=== PATIENT | female | born 1995 | race Hispanic/Latino ===

== ENCOUNTER 2022-11-03 01:34 | Inpatient (IN) | payer OTHER ==
[~2022-11-03] VITALS: Ht 147.3 cm; Wt 46.3 kg
[2022-11-03] MEDS ORDERED: CEFAZOLIN SODIUM 1 GM VIAL IVPB PRN (02:00)
[2022-11-03] MEDS ORDERED: CALDOLOR 800MG+NS 250ML 250 ML IV PRN (02:00)
[2022-11-03] MEDS ORDERED: LACTATED RINGERS 1000ML 1,000 ML IV SCH (02:00)
[2022-11-03 02:22] LABS: APPEARANCE,URINE CLOUDY (CLEAR); BILIRUBIN,URINE NEGATIVE (NEGATIVE); COLOR,URINE YELLOW (YELLOW); GLUCOSE, URINE (UA) NEGATIVE (NEGATIVE); KETONES,URINE NEGATIVE (NEGATIVE); LEUKOCYTE ESTERASE ,URINE 500 Leu/uL (NEGATIVE); NITRATE,URINE NEGATIVE (NEGATIVE); OCCULT BLOOD,URINE SMALL (NEGATIVE); PH,URINE 5.5 (5.0-8.0); PROTEIN,URINE 20 mg/dL (NEGATIVE); UROBILINOGEN,URINE 0.2 mg/dL (0.2-1.0)
[2022-11-03 02:33] LABS: ADD UA MICROSCOPIC YES
[2022-11-03 02:36] LABS: MEAN CORPUSCULAR HEMOGLOBIN 29.5 pg (27.0-33.0); MEAN CORPUSCULAR HGB CONC 33.5 g/dL (32.0-36.0); MEAN CORPUSCULAR VOLUME 87.9 fL (79-99); RED BLOOD CELL COUNT(AUTO) 3.87 MIL/uL (4.00-5.50); RED CELL DISTRIBUTION WIDTH 15.1 % (11.0-15.5); WHITE BLOOD COUNT (AUTO) 10.4 K/uL (4.8-10.8)
[2022-11-03 02:38] LABS: MUCUS,URINE RARE LPF (None Seen); RBC,URINE 26-50 /HPF (0-1); SQUAMOUS EPITHELIAL CELL,UR MOD /HPF (0-2); WBC,URINE TNTC /HPF (0-1)
[2022-11-03] MEDS: LACTATED RINGERS 1000ML IV SCH ×2 (03:32→03:35)
[2022-11-03] MEDS ORDERED: ONDANSETRON 4MG INJ ONE (07:34)
[2022-11-03] MEDS ORDERED: PHENYLEPHRINE HCL 10 MG/ML 1ML VIAL IV ONE (07:34)
[2022-11-03] MEDS ORDERED: OXYTOCIN 10 USP UNITS/ML ONE (07:34)
[2022-11-03] MEDS ORDERED: MORPHINE PF 100MG/10ML AMP IV ONE (07:34)
[2022-11-03] MEDS ORDERED: FENTANYL CITRATE PF 50 MCG/1 ML 2ML VIAL ONE (07:35)
[2022-11-03] MEDS ORDERED: CEFAZOLIN SODIUM 2 GM VIAL IVPB ONE (07:41)
[2022-11-03] MEDS ORDERED: DEXAMETHASONE SOD PHOSPHATE 10MG/ML 1ML VIAL ONE (08:09)
[2022-11-03] MEDS ORDERED: OXYTOCIN-LR 30 UNITS/500ML 500 ML IV ONE (08:33)
[2022-11-03] MEDS ORDERED: OXYTOCIN-LR 30 UNITS/500ML 500 ML IV PRN (09:00)
[2022-11-03] MEDS ORDERED: DEXTROSE 5 %-0.45 % NACL 1,000 ML IV PRN (09:00)
[2022-11-03] MEDS ORDERED: 0.9%NACL 10ML VIAL IVP PRN (09:00)
[2022-11-03] MEDS: PROMETHAZINE HCL 25 MG/ML 1ML AMPULE IM PRN ×2 (11:01→23:30)
[2022-11-03] MEDS: MEPERIDINE-PF 75 MG/ML SYG IM PRN ×2 (11:02→23:31)
[2022-11-03 12:28] VITALS: BP 107/54; PULSE 81; RESP 18
[2022-11-03 16:11] VITALS: BP 113/67; PULSE 78; RESP 16
[2022-11-03] MEDS ORDERED: PREN-226 PO (18:25)
[2022-11-03] MEDS ORDERED: ONDANSETRON 4MG INJ IVP PRN (19:00)
[2022-11-03] MEDS ORDERED: DiphenhydrAMINE HCL 50 MG/ML VIAL IV PRN (19:00)
[2022-11-03 19:52] VITALS: BP 102/65; PULSE 72; RESP 20
[2022-11-03] MEDS ORDERED: LORATADINE 10 MG TABLET PO PRN (20:00)
[2022-11-04] VITALS (7 sets, daily range): BP systolic 87–106; BP diastolic 40–73; PULSE 66–102; RESP 16–20; TEMP 99
[2022-11-04] MEDS ORDERED: ACETAMINOPHEN 500 MG TABLET PO PRN (06:00)
[2022-11-04] MEDS ORDERED: LANOLIN 30GM OINTMENT TP PRN (06:00)
[2022-11-04] MEDS ORDERED: BISACODYL 10 MG SUPP.RECT RC PRN (06:00)
[2022-11-04] MEDS ORDERED: HYDROCODONE/ACETAMINOPHEN 5/325 MG TAB PO PRN (06:00)
[2022-11-04] MEDS: IBUPROFEN 800 MG TAB PO SCH ×3 (06:09→22:29)
[2022-11-04 06:21] LABS: HEMATOCRIT 33.9 % (36-48); MEAN CORPUSCULAR HEMOGLOBIN 29.9 pg (27.0-33.0); MEAN CORPUSCULAR HGB CONC 33.9 g/dL (32.0-36.0); MEAN CORPUSCULAR VOLUME 88.3 fL (79-99); RED BLOOD CELL COUNT(AUTO) 3.84 MIL/uL (4.00-5.50); RED CELL DISTRIBUTION WIDTH 15.2 % (11.0-15.5); WHITE BLOOD COUNT (AUTO) 10.9 K/uL (4.8-10.8)
[2022-11-04] MEDS: SIMETHICONE 80 MG TAB.CHEW PO PRN (08:35)
[2022-11-04] MEDS: DOCUSATE SODIUM 100 MG CAP PO SCH ×2 (08:35→21:07)
[2022-11-04] MEDS: ACETAMINOPHEN WITH CODEINE 1 TAB TAB PO PRN ×2 (11:14→21:07)
[2022-11-05 03:28] VITALS: BP 88/49; PULSE 84; RESP 19
[2022-11-05] MEDS: IBUPROFEN 800 MG TAB PO SCH (05:58)
[2022-11-05 06:38] LABS: HEMATOCRIT 32.3 % (36-48); MEAN CORPUSCULAR HEMOGLOBIN 29.5 pg (27.0-33.0); MEAN CORPUSCULAR HGB CONC 33.4 g/dL (32.0-36.0); MEAN CORPUSCULAR VOLUME 88.3 fL (79-99); RED BLOOD CELL COUNT(AUTO) 3.66 MIL/uL (4.00-5.50); RED CELL DISTRIBUTION WIDTH 15.4 % (11.0-15.5); WHITE BLOOD COUNT (AUTO) 10.3 K/uL (4.8-10.8)
[2022-11-05 08:00] VITALS: BP 94/55; PULSE 78; RESP 18
[2022-11-05] MEDS: DOCUSATE SODIUM 100 MG CAP PO SCH (09:08)
[2022-11-05] MEDS ORDERED: DIPH,PERTUSS(ACELL),TET VAC/PF 0.5 ML VIAL IM PRN (10:00)
[2022-11-05] MEDS: SIMETHICONE 80 MG TAB.CHEW PO PRN (11:03)
[2022-11-05 11:35] VITALS: BP 110/69; PULSE 84; RESP 18
[2022-11-05] MEDS ORDERED: ACET-2079 PO ×2 (11:40→11:46)
== END 2022-11-05 14:00 | disposition home or self-care (01) | DRG 788 ==
LOC: EDH 01:34 → EDBD 01:34 → OBSVTOIN 01:35 → LDH 01:35 → WSH 12:15
PROVIDERS: ADMIT Obstetrics & Gynecology; ATTEND Obstetrics & Gynecology
PROC: 10D00Z1 Extraction of Products of Conception, Low, Open Approach (ICD-10-PCS; principal; 2022-11-03 08:00)
PROC: 3E0234Z Introduction of Serum, Toxoid and Vaccine into Muscle, Percutaneous Approach (ICD-10-PCS; 2022-11-05)
DX: O34.211 Maternal care for low transverse scar from previous cesarean delivery (principal); Z37.0 Single live birth; Z3A.39 39 weeks gestation of pregnancy; Z23 Encounter for immunization
CPT/HCPCS: 36415; 59510; 81001; 85027; 86592; 86850; 86900; 86901; 87088; 87340; 90715; A4344; G0378; J0690; J1100; J1741; J2175; J2274; J2371; J2405; J2550; J2590; J3010; J7120; A4248